=== PATIENT | male | born 1980 | race Caucasian/White ===

== ENCOUNTER 2018-08-08 13:20 | Emergency (ER) | payer MEDICAID ==
[~2018-08-08] VITALS: Ht 170.2 cm; Wt 70.0 kg
[2018-08-08 13:48] VITALS: BP 123/84
== END 2018-08-08 14:28 | disposition home or self-care (01) ==
LOC: ED 14:18
DX: J34.0 Abscess, furuncle and carbuncle of nose (principal); K13.0 Diseases of lips; F17.200 Nicotine dependence, unspecified, uncomplicated
CPT/HCPCS: 99283

== ENCOUNTER 2018-10-14 10:48 | Emergency (ER) | payer MEDICAID ==
[~2018-10-14] VITALS: Ht 182.9 cm; Wt 80.0 kg
[2018-10-14] MEDS ORDERED: LORazepam 2 MG/ML, 1ML IVPush ONE (11:00)
[2018-10-14 11:03] VITALS: BP 110/67
--- NOTE | 2018-10-14 11:07 | NUR ---
MALE BIB AMBULANCE WITH C/O METH USE. PER REPORT PT WAS FOLLOWING CUSTOMERS AT [facility], PT WAS ASKED TO LEAVE. PT GOT COMBATIVE AND AGGRESSIVE. [employer] CALLED. PT WAS RESISTANT, COMBATIVE, AND AGGRESSIVE TO FIRE, [employer] AND [facility]. 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 PIV ESTABLISHED WOOD REPATCHER. PT TACHYCARDIC. PT ARRIVES IN 4 POINT RESTRAINTS.
--- NOTE | 2018-10-14 11:20 | NUR ---
LATE ENTRY FOR 1050. PT ARRIVES IN 4 POINT RESTRAINTS. PT PLACED IN 4 POINT RESTRAINTS.
--- NOTE | 2018-10-14 11:20 | NUR ---
PT NOW IN TWO POINT RESTRAINTS.
[2018-10-14 11:24] LABS: BASOPHILS % (AUTO) 0 % (0-1); EOSINOPHILS # (AUTO) 0.24 x10^3/uL (0-0.4); EOSINOPHILS % (AUTO) 2 % (1-7); LYMPHOCYTES # (AUTO) 1.99 x10^3/uL (1-3.4); LYMPHOCYTES % (AUTO) 15 % (22-44); MD NO; MEAN CORPUSCULAR HEMOGLOBIN 29.9 pg (27.5-34.5); MEAN CORPUSCULAR HGB CONC 32.5 g/dL (33.2-36.2); MEAN CORPUSCULAR VOLUME 91.9 fL (81-97); MEAN PLATELET VOLUME 7.5 fL (7.4-10.4); MONOCYTES # (AUTO) 0.69 x10^3/uL (0.2-0.8); MONOCYTES % (AUTO) 5 % (2-9); NEUTROPHILS # (AUTO) 10.11 x10^3/uL (1.8-6.8); NEUTROPHILS % (AUTO) 78 % (42-75); PLATELET COUNT 401 x10^3/uL (130-400); RED BLOOD COUNT 4.55 x10^6/uL (4.38-5.82); RED CELL DISTRIBUTION WIDTH 12.6 % (9.4-14.8)
[2018-10-14 11:31] LABS: ALBUMIN 3.3 g/dL (3.4-5.0); ANION GAP 6 mmol/L (5-15); CALCIUM 8.2 mg/dL (8.5-10.1); CHLORIDE 107 mmol/L (98-107); SALICYLATE LEVEL 3.2 mg/dL (2.8-20.0)
[2018-10-14 11:35] LABS: ALANINE AMINOTRANSFERASE 18 U/L (12-78); ALKALINE PHOSPHATASE 84 U/L (45-117); BILIRUBIN,TOTAL 0.2 mg/dL (0.2-1.0); CREATINE KINASE, TOTAL 304 U/L (39-308); CREATININE 1.02 mg/dL (0.7-1.3); TOTAL PROTEIN 7.1 g/dL (6.4-8.2)
[2018-10-14 11:37] LABS: ACETAMINOPHEN < 2 mcg/mL (10-30)
--- NOTE | 2018-10-14 12:25 | NUR ---
PT SLEEPING ON GURNEY. NO ACUTE DISTRESS NOTED. WILL CONTINUE TO MONITOR.
--- NOTE | 2018-10-14 12:29 | NUR ---
LATE ENTRY FOR 1153: PT TAKEN OUT OF ALL RESTRAINTS. PT REMAINS CALM RESTING ON GURNEY
--- NOTE | 2018-10-14 12:54 | NUR ---
ATTEMPTED TO PERFORM EKG ON PT. PT WOULD ONLY ALLOW EKG "IF YOU GET ME OUT OF HERE." PT DENIED EKG WHEN HE WAS INFORMED THAT HIS REQUEST COULD NOT BE GRANTED.
--- NOTE | 2018-10-14 13:23 | NUR ---
LATE ENTRY FOR 1315: PT REFUSING TO STAY OR GO BACK TO ROOM. PT ESCORTED OUT AMBULANCE BAY. PT LEFT WITH ALL PERSONAL BELONGINGS.
--- NOTE | 2018-10-14 13:24 | NUR ---
PIV DISCONTINUED WITH TIP INTACT. PRESSURE DRESSING APPLIED.
== END 2018-10-14 13:26 | disposition home or self-care (01) ==
LOC: MERGE 10:48 → EDBD 10:48 → ED 13:20
DX: F23 Brief psychotic disorder (principal)
CPT/HCPCS: 36415; 80053; 80307; 82550; 83735; 85025; 99284

== ENCOUNTER 2018-11-06 12:21 | Emergency (ER) | payer MEDICAID ==
[~2018-11-06] VITALS: Ht 172.7 cm; Wt 65.0 kg
--- NOTE | 2018-11-06 12:25 | NUR ---
security at bedside to assist [employer]
[2018-11-06] MEDS ORDERED: ZIPRASIDONE 20 MG INJ IM ONE ×2 (12:26→12:30)
[2018-11-06] MEDS ORDERED: DIPHENHYDRAMINE 50 MG/ML, 1ML IM ONE (12:30)
[2018-11-06] MEDS ORDERED: LORazepam 1MG TABLET PO ONE (12:30)
[2018-11-06] MEDS ORDERED: DIPHENHYDRAMINE 50 MG/ML, 1ML ONE (12:34)
[2018-11-06] MEDS ORDERED: LORazepam 2 MG/ML, 1ML ONE (12:35)
--- NOTE | 2018-11-06 12:59 | NUR ---
ON ARRIVAL, SECURITY IN ROOM AND ASSIST WITH FOUR POINT RESTRAINTS D/T COMBATIVE AND DELUSIONAL BEHAVIOR. PT MEDICATED PER ERP ORDER. PULSE OX PLACED. PT NOT ALLOWING BP CUFF OR TEMP AT THIS TIME. SITTER AT DOORWAY, WILL CONTINUE TO MONITOR FOR SEDATION TO ALLOW FURTHER MONITORING.
[2018-11-06] MEDS ORDERED: LORazepam 2 MG/ML, 1ML IM ONE (13:00)
[2018-11-06 13:26] LABS: BASOPHILS # (AUTO) 0.02 x10^3/uL (0-0.1); BASOPHILS % (AUTO) 0 % (0-1); EOSINOPHILS # (AUTO) 0.07 x10^3/uL (0-0.4); EOSINOPHILS % (AUTO) 1 % (1-7); LYMPHOCYTES # (AUTO) 1.11 x10^3/uL (1-3.4); LYMPHOCYTES % (AUTO) 8 % (22-44); MD NO; MEAN CORPUSCULAR HEMOGLOBIN 29.6 pg (27.5-34.5); MEAN CORPUSCULAR VOLUME 89.6 fL (81-97); MEAN PLATELET VOLUME 7.5 fL (7.4-10.4); MONOCYTES # (AUTO) 0.57 x10^3/uL (0.2-0.8); MONOCYTES % (AUTO) 4 % (2-9); NEUTROPHILS # (AUTO) 12.54 x10^3/uL (1.8-6.8); NEUTROPHILS % (AUTO) 88 % (42-75); PLATELET COUNT 377 x10^3/uL (130-400); RED BLOOD COUNT 4.81 x10^6/uL (4.38-5.82); RED CELL DISTRIBUTION WIDTH 13.6 % (9.4-14.8)
--- NOTE | 2018-11-06 13:29 | NUR ---
PT SLEEPING, NAD. VS IMPROVED AND UPDATED IN COMPUTER. SECURITY CALLED TO ASSIST WITH RESTRAINTS, TO BE TAKEN TO 2 POINT. SITTER AT DOORWAY FOR CLOSE OBS. BP CUFF, PULSE OX IN PLACE.
[2018-11-06 13:37] LABS: ALBUMIN 3.9 g/dL (3.4-5.0); ANION GAP 10 mmol/L (5-15); CALCIUM 9.7 mg/dL (8.5-10.1); CHLORIDE 106 mmol/L (98-107); CREATININE 1.57 mg/dL (0.7-1.3)
[2018-11-06 13:39] LABS: CREATINE KINASE, TOTAL 291 U/L (39-308)
[2018-11-06 13:41] LABS: SALICYLATE LEVEL < 1.7 mg/dL (2.8-20.0)
--- NOTE | 2018-11-06 14:30 | NUR ---
SITTER AT DOORWAY. PT SLEEPING, NAD.
--- NOTE | 2018-11-06 15:20 | NUR ---
PT SLEEPING, NAD. SECURITY CALLED TO REMOVE RESTRAINTS. Addendum: 11/06/18 at 1521 by IDA JULIAN REMAINS AT BS. Addendum: 11/06/18 at 1542 by IDA SOBIA NOTE, RESTRAINTS REMOVED AT 1430
[2018-11-06 15:30] VITALS: BP 114/64
--- NOTE | 2018-11-06 16:18 | NUR ---
PT AMBULATORY, ASKING TO LEAVE. ERP NOTIFIED, AWAITING DISCHARGE PAPERWORK.
== END 2018-11-06 16:31 | disposition home or self-care (01) ==
LOC: ED 13:23
DX: F41.9 Anxiety disorder, unspecified (principal); E86.0 Dehydration; F15.220 Other stimulant dependence with intoxication, uncomplicated; Z72.9 Problem related to lifestyle, unspecified
CPT/HCPCS: 36415; 80048; 80307; 82040; 82550; 85025; 93005; 96372; 99291; J1200; J2060; J3486

== ENCOUNTER 2019-08-26 00:42 | Emergency (ER) | payer SELFPAY ==
[~2019-08-26] VITALS: Ht 177.8 cm; Wt 69.4 kg
[2019-08-26 00:51] VITALS: BP 112/80
--- NOTE | 2019-08-26 01:04 | NUR ---
PT DECLINED TO COME BACK TO A ROOM, WENT OUT TO RESP LOBBY, GOT HIS BLANKET AND LEFT
== END 2019-08-26 01:08 | disposition left against medical advice (07) ==
LOC: ED 01:00
DX: R05 Cough (principal); J02.9 Acute pharyngitis, unspecified; Z53.21 Procedure and treatment not carried out due to patient leaving prior to being seen by health care provider

== ENCOUNTER 2019-09-12 05:23 | Emergency (ER) | payer MEDICAID ==
[~2019-09-12] VITALS: Ht 170.2 cm; Wt 68.2 kg
[2019-09-12 05:26] VITALS: BP 139/95
== END 2019-09-12 06:04 | disposition home or self-care (01) ==
LOC: ED 05:45
DX: F15.150 Other stimulant abuse with stimulant-induced psychotic disorder with delusions (principal)
CPT/HCPCS: 99281